=== PATIENT | male | born 1995 | race Caucasian/White ===

== ENCOUNTER 2016-07-15 19:28 | Emergency (ER) | payer BC | END 2016-07-15 23:39 | disposition home or self-care (01) | LOC: ER 19:28 | DX: S80.11XA Contusion of right lower leg, initial encounter (principal); I87.8 Other specified disorders of veins; Y93.67 Activity, basketball; Y93.02 Activity, running; K59.00 Constipation, unspecified; Z88.1 Allergy status to other antibiotic agents | CPT/HCPCS: 99282 ==